=== PATIENT | female | born 1965 | race Two or more races ===

== ENCOUNTER 2018-01-14 05:55 | Day surgery (SDC) | payer OTHER ==
[~2018-01-14 05:55] MED LIST: AMBIEN10 MG PO; ATIVAN IJ; PAXIL CR37.5 MG PO; VISTARIL25 MG PO; WELLBUTRIN75 MG PO; ZOL PO
[2018-01-14] MEDS ORDERED: MIRALAX17 GM PO (08:56)
[2018-01-14] MEDS ORDERED: PERCOCET 5-3251 EACH PO (08:56)
== END 2018-01-14 13:10 | disposition home or self-care (01) ==
LOC: CIR.AMB 05:55
DX: K80.10 Calculus of gallbladder with chronic cholecystitis without obstruction (principal)